=== PATIENT | female | born 1995 | race Two or more races ===

== ENCOUNTER 2018-12-17 18:31 | Emergency (ER) | payer SELFPAY ==
[~2018-12-17] VITALS: Ht 162.6 cm; Wt 77.0 kg
[2018-12-17] MEDS ORDERED: ONDANSETRON HCL 4MG/2ML INJ IV STA (18:42)
[2018-12-17] MEDS ORDERED: SODIUM CHLORIDE 0.9% 1,000 ML IV ONE (18:42)
[2018-12-17] MEDS ORDERED: LORAZEPAM 2MG/ML CPJ IM ONE (19:15)
[2018-12-17] MEDS ORDERED: OLANZAPINE 10 MG/VIAL IM ONE (19:15)
[2018-12-17 20:04] LABS: BASOPHILS % 0.5 % (0.0-2.0); HEMATOCRIT. 45.1 % (36.0-48.0); HEMOGLOBIN. 15.1 g/dL (12.0-16.0); LYMPHOCYTES % 37.7 % (20.0-50.0); MEAN CORPUSCULAR VOLUME 86.8 fL (81.0-99.0); MEAN PLATELET VOLUME 7.8 fl (7.4-10.4); MONOCYTES % 7.2 % (2.0-8.0); NEUTROPHILS % 51.6 % (40.0-76.0); PLATELET 302 x1000/uL (130-400); RED CELL DISTRIBUTION WIDTH 13.8 % (11.6-14.6)
[2018-12-17 20:05] LABS: CHLORIDE 112 mEq/L (98-107)
[2018-12-17 20:09] LABS: ETHANOL BLOOD 276 mg/dL
[2018-12-17 20:22] LABS: HCG SCREEN NEGATIVE
[2018-12-17 20:55] LABS: CLARITY URINE CLEAR (CLEAR); COLOR URINE YELLOW (YELLOW); KETONES URINE NEGATIVE (NEGATIVE); LEUKOCYTE ESTERASE URINE 1+ (NEGATIVE); NITRITE URINE NEGATIVE (NEGATIVE); OCCULT BLOOD URINE NEGATIVE (NEGATIVE); PROTEIN URINE NEGATIVE (NEGATIVE); SPECIFIC GRAVITY URINE 1.002 (1.005-1.030); UROBILINOGEN URINE 0.2 E.U./dL (0.2-1.0)
[2018-12-17 21:08] LABS: *AMPHETAMINES SCREEN URINE NEGATIVE (NEGATIVE); *BARBITURATES SCREEN URINE NEGATIVE (NEGATIVE); *COCAINE SCREEN URINE NEGATIVE (NEGATIVE); METHADONE URINE SCREEN NEGATIVE (NEGATIVE); OPIATES URINE SCREEN NEGATIVE (NEGATIVE); PHENCYCLIDINE URINE SCREEN NEGATIVE (NEGATIVE)
[2018-12-17 21:09] LABS: CANNABINOID URINE SCREEN NEGATIVE (NEGATIVE)
[2018-12-17 21:16] LABS: *BENZODIAZEPINES SCREEN URINE PRESUMTIVE POSITIVE (NEGATIVE)
[2018-12-18 06:00] VITALS: BP 92/43
== END 2018-12-18 06:21 | disposition home or self-care (01) ==
LOC: ER 18:31
DX: G92 Toxic encephalopathy (principal); T51.91XA Toxic effect of unspecified alcohol, accidental (unintentional), initial encounter; Y92.9 Unspecified place or not applicable; F10.129 Alcohol abuse with intoxication, unspecified; Y90.8 Blood alcohol level of 240 mg/100 ml or more
CPT/HCPCS: 36415; 70450; 80053; 80305; 80320; 81003; 81025; 83690; 83880; 84484; 84703; 85025; 93005; 96360; 96372; 99284; J2060; J3490; J7030; G0480